=== PATIENT | female | born 2005 | race Caucasian/White ===

== ENCOUNTER 2023-11-20 13:39 | Emergency (ER) | payer BC, SELFPAY ==
[2023-11-20 13:46] VITALS: BP 108/72
[2023-11-20 14:12] LABS: % Basophils 0.4 % (0-2); % Eosinophils 2.1 % (0-6); % Immature Granulocytes 0.1 % (0-0.5); % Neutrophils 59.4 % (42.2-75.2); Absolute Eosinophils 0.2 10^3/uL (0-0.7); Absolute Lymphocytes 2.2 10^3/uL (1.2-3.4); Absolute Monocytes 0.5 10^3/uL (0.1-0.6); Absolute Neutrophils 4.2 10^3/uL (1.4-6.5); Hematocrit 38.3 % (37.0-47.0); Mean Corp Hgb Conc. 33.9 g/dL (33.0-37.0); Mean Corpuscular Hgb 31.4 pg (27.0-31.0); Mean Corpuscular Volume 92.5 fL (81.0-99.0); Mean Platelet Volume 9.9 fL (7.4-10.4); Nucleated Red Blood Cells % 0 %; Platelet Count 236 10^3/uL (130-400); Red Blood Cell Count 4.14 10^6/uL (4.20-5.40); Red Cell Dist. Width 11.5 % (11.5-14.5)
[2023-11-20 14:27] LABS: HCG, Serum Qualitative Screen Negative
[2023-11-20 14:33] LABS: ALT (SGPT) 18 U/L (0-35); AST (SGOT) 28 U/L (14-36); Albumin 4.4 g/dl (3.5-5.0); Alkaline Phosphatase 67 U/L (38-126); Blood Urea Nitrogen 14 mg/dl (7-17); Calcium 9.6 mg/dl (8.4-10.2); Carbon Dioxide 25 mmol/L (22-30); Chloride 105 mmol/L (98-107); Glucose 110 mg/dl (70-99); Lipase 78 U/L (23-300); Potassium 4.4 mmol/L (3.5-5.1); Sodium 135 mmol/L (135-145); Total Bilirubin 0.6 mg/dl (0.2-1.3); Total Protein 7.2 g/dl (6.3-8.2); eGFR > 60.00
[2023-11-20 15:26] LABS: Urine Albumin Negative (Neg - Trace); Urine Bilirubin 1+ (Negative); Urine Character Clear (Clear); Urine Color Yellow; Urine Glucose Negative (Negative); Urine Ketone Trace (Negative); Urine Leukocyte Trace (Negative); Urine Nitrite Negative (Negative); Urine Occult Blood Negative (Negative); Urine Specific Gravity 1.025 (<1.030); Urine Urobilinogen Negative (Neg - 1+)
[2023-11-20 15:33] LABS: Urine Bacteria Few (Negative); Urine Red Blood Cell None Seen /HPF (0-2); Urine Squamous Cell >30 /LPF (Few)
--- NOTE | 2023-11-20 16:59 | ED.GENMED ---
History of Present Illness
General
Chief Complaint: Abdominal Pain
Source: patient and family
Exam Limitations: none
Time Seen by Provider: 11/20/23 14:20
Nursing documentation reviewed up to this point in time: agreed with
Travel History
Have you had any contact with someone who has COVID-19?: No
Do you have any symptoms of coronavirus? Fever > 100 degrees, chills, cough, shortness of breath, sore throat, loss of taste or smell, muscle aches, or headache?: No
History of Present Illness
History of Present Illness:
18-year-old female with past ministry of anxiety depression presenting to the emergency department today with concerns of left upper quadrant discomfort starting this morning had some nausea but that went away. No vomiting no changes in bowel
movements denies specific trauma to the area. No leg swelling no chest pain or shortness of breath. She was seen by her [facility] doctor who sent her to the ER for further assessment.
Review of Systems
Review of Systems
Allergies reviewed?: Yes
All Other Systems: ROS reviewed and negative except as documented in HPI and ROS
Phy Exam
Physical Exam
Physical Exam:
GENERAL: Alert , in no apparent distress
EYE: pupils equal and reactive
NECK: Supple, no significant adenopathy.
ENT: o/p clr, mmm.
CARDIAC: Regular rate and rhythm .
LUNGS: Clear breath sounds bilaterally, no acute respiratory distress, no wheezes/rales/rhonchi
ABDOMEN: Slight tenderness reproducible to the left upper quadrant without obvious splenomegaly no guarding
NEUROLOGICAL: Alert and oriented, no focal neuro deficits
SKIN: Warm and dry, skin intact.
MUSCULOSKELETAL: No edema, well perfused.
PSYCH: Normal and appropriate interaction.
Course
Orders/Labs/Results
Orders:
Orders
11/20/23 13:52
Test Result ONCE
11/20/23 13:57
Complete Blood Count/With Diff Urgent
Comprehensive Metabolic Panel Urgent
HCG, Serum Qualitative Screen Urgent
Lipase Urgent
11/20/23 15:14
UA Reflex to Culture [Urinalysis Reflex To Culture] Urgent
Date Specimen was Collected: 11/20/23
Time Specimen was Collected: 15:12
Urine Microscopic Reflex Cult Urgent
11/20/23 15:29
Spleen US [US Spleen] Urgent
Comment:
Reason For Exam: luq pain
Abnormal Lab Results
11/20/23 11/20/23
13:57 15:14
RBC 4.14 L 10^6/uL
(4.20-5.40)
MCH 31.4 H pg
(27.0-31.0)
Glucose 110 H mg/dl
(70-99)
Urine Ketones Trace A
(Negative)
Urine Bilirubin 1+ A
(Negative)
Leukocyte Esterase Rfl Trace A
(Negative)
Urine Bacteria (Reflex) Few A
(Negative)
11/20/23 13:57
11/20/23 13:57
Vital Signs
Initial and Last Documented VS:
Initial Vital Signs
Temp Pulse Resp BP Pulse Ox
97.3 F 68 20 108/72 96
11/20/23 13:46 11/20/23 13:46 11/20/23 13:46 11/20/23 13:46 11/20/23 13:46
Last Documented Vital Signs
Temp Pulse Resp BP Pulse Ox
97.3 F 68 20 108/72 96
11/20/23 13:46 11/20/23 13:46 11/20/23 13:46 11/20/23 13:46 11/20/23 13:46
MDM/Problems Addressed
MDM/Problems Addressed:
18-year-old female presenting to the emergency department today with concerns of left upper quadrant abdominal pain starting this morning. Associated nausea initially no vomiting no change in bowel movements no fevers no chest pain or shortness of
breath. Patient does take a combined oral contraceptive pill. Upon arrival vital signs are normal normal pulse ox heart rate respiratory rate patient no distress normal heart and lung examination abdominal semination reveals a slight discomfort to
the left upper quadrant but otherwise soft no splenomegaly. Ultrasound performed of the spleen which was normal labs unremarkable. Patient additionally does seem to be low risk for PE considering no risk factors other than the contraceptive pill.
Vital signs are normal no additional risk factors no leg swelling overall risk was discussed with the patient and additional testing was offered but she opted for observation at home and to return for any worsening symptoms.
*Critical Care Note
Total Time (30-74mins, 75-104mins- exclusive of procedures): Not Applicable
ED Attending Note
-
Portions of this chart may have been created with voice recognition software.� Occasional wrong word or��sound alike� substitutions may have occurred due to the inherent limitations of voice recognition software.
Discharge Plan
Departure
Patient Disposition: Home (Routine Discharge)
Date of Disposition: 11/20/23
Time of Disposition: 17:01
Patient with high blood pressure during this ER visit?: No
Condition: Good
Covid-19: Not Applicable
Discharge Problem:
Left upper quadrant abdominal pain
Instructions: Abdominal Pain
Referrals:
Lenora Wright MD [Family Provider] -
Activity Restrictions/Additional Instructions:
You came to the emergency department today with concerns of left upper quadrant abdominal pain. You had a reassuring evaluation ultrasound and labs. Please help closely as an outpatient with your primary care doctor. Return to the emergency
department for any worsening, new or concerning symptoms.
Interventions
Interventions:
*Risk Screen - Suicide Last Done: 11/20/23 13:46
*General Assessment Last Done: 11/20/23 13:46
*Neglect/Abuse Screening Last Done: 11/20/23 13:46
*ED COVID-19 Vaccine History Last Done: 11/20/23 14:32
[facility] Assessment Last Done: 11/20/23 14:32
Discharge Date and Time
Print Language: SYRIAC
[2023-11-20 17:10] VITALS: BP 117/71
== END 2023-11-20 17:15 | disposition home or self-care (01) ==
LOC: EMR 13:39
PROVIDERS: Emergency Medicine; Physician Assistant; EMERGENCY PHYSICIAN Emergency Medicine; FAMILY PHYSICIAN Student in an Organized Health Care Education/Training Program
DX: R10.12 Left upper quadrant pain (principal); F41.8 Other specified anxiety disorders
CPT/HCPCS: 99284; 76705; 80053; 81003; 81015; 83690; 84703; 85025